=== PATIENT | male | born 1990 | race Caucasian/White ===

== ENCOUNTER 2022-07-07 20:15 | Emergency (ER) | payer SELFPAY ==
[~2022-07-07] VITALS: Ht 175.3 cm; Wt 70.0 kg
[2022-07-07 23:25] LABS: EOSINOPHILS % 3.6 % (0.0-5.0); HEMOGLOBIN. 15.2 g/dL (14.0-18.0); LYMPHOCYTES % 30.6 % (20.0-50.0); MEAN CORPUSCULAR HEMOGLOBIN 32.7 pg (28.0-32.0); MEAN CORPUSCULAR VOLUME 96.7 fL (80.0-94.0); MEAN PLATELET VOLUME 6.9 fl (7.4-10.4); MONOCYTES % 8.4 % (2.0-8.0); NEUTROPHILS % 56.4 % (40.0-76.0); PLATELET 421 x1000/uL (130-400); RED BLOOD CELL COUNT 4.65 mill/uL (4.7-6.1); RED CELL DISTRIBUTION WIDTH 16.9 % (11.6-14.6)
[2022-07-07 23:29] LABS: CHLORIDE 111 mEq/L (98-107)
[2022-07-07 23:52] LABS: ETHANOL BLOOD 496 mg/dL
[2022-07-08] MEDS ORDERED: POTASSIUM CHLORIDE INJ 40 MEQ in DEXT 5% WATER 250 ML IV ONE (01:15)
[2022-07-08] MEDS ORDERED: KCL 20MEQ/100ML X 2 FOR TOTAL KCL 40MEQ/200ML IV SCH (02:00)
[2022-07-08 03:14] VITALS: BP 117/92
[2022-07-08 03:50] LABS: *AMPHETAMINES SCREEN URINE NEGATIVE (NEGATIVE); *BARBITURATES SCREEN URINE NEGATIVE (NEGATIVE); *BENZODIAZEPINES SCREEN URINE NEGATIVE (NEGATIVE); *COCAINE SCREEN URINE PRESUMTIVE POSITIVE (NEGATIVE); CANNABINOID URINE SCREEN NEGATIVE (NEGATIVE); METHADONE URINE SCREEN NEGATIVE (NEGATIVE); OPIATES URINE SCREEN NEGATIVE (NEGATIVE); PHENCYCLIDINE URINE SCREEN NEGATIVE (NEGATIVE)
== END 2022-07-08 05:00 | disposition home or self-care (01) ==
LOC: EDBD 20:15 → ER 20:15
DX: E87.6 Hypokalemia (principal); F10.129 Alcohol abuse with intoxication, unspecified; Y90.8 Blood alcohol level of 240 mg/100 ml or more; F14.10 Cocaine abuse, uncomplicated
CPT/HCPCS: 36415; 70450; 80053; 80305; 80307; 80320; 80329; 85025; 96365; 99291; J3480; J7060; G0480

== ENCOUNTER 2022-12-16 02:02 | Inpatient (IN) | payer MEDICAID ==
[~2022-12-16] VITALS: Ht 167.6 cm; Wt 54.2 kg
[2022-12-16] MEDS ORDERED: ONDANSETRON HCL 4MG/2ML INJ IV STA (02:22)
[2022-12-16] MEDS ORDERED: NALOXONE HCL 0.4 MG/ML 1ML VIAL IV ONE (02:30)
[2022-12-16] MEDS ORDERED: SODIUM CHLORIDE 0.9% 1,000 ML IV ONE ×2 (02:30→07:30)
[2022-12-16 02:56] LABS: BG BASE EXCESS -1.6 mmol/L (-2.0-2.0); BG CARBOXYHEMOGLOBIN 0.3 % (0.5-1.5); BG DEOXYHEMOGLOBIN 0.5 % (0.0-5.0); BG FRACTION INSPIRED OXYGEN 100; BG HCO3 ACT 24.2 mmol/L (22.0-26.0); BG METHEMOGLOBIN 0.5 % (0.0-1.5); BG OXYGEN SATURATION 99.5 % (92.0-98.5); BG OXYHEMOGLOBIN 98.7 % (94.0-97.0); BG PCO2 44.5 mmHg (35.0-45.0); BG PH 7.353 (7.350-7.450); BG PO2 419.7 mmHg (75.0-100.0); BG TOTAL HEMOGLOBIN 16.8 g/dL (12.0-18.0); BG VENT MODE MASK - NRB
[2022-12-16 03:17] LABS: BASOPHILS % 0.7 % (0.0-2.0); EOSINOPHILS % 5.9 % (0.0-5.0); HEMATOCRIT. 46.7 % (42.0-52.0); HEMOGLOBIN. 15.8 g/dL (14.0-18.0); LYMPHOCYTES % 16.9 % (20.0-50.0); MEAN CORPUSCULAR HEMOGLOBIN 33.2 pg (28.0-32.0); MEAN CORPUSCULAR VOLUME 98.2 fL (80.0-94.0); MONOCYTES % 3.3 % (2.0-8.0); NEUTROPHILS % 73.2 % (40.0-76.0); PLATELET 452 x1000/uL (130-400); RED BLOOD CELL COUNT 4.76 mill/uL (4.7-6.1); RED CELL DISTRIBUTION WIDTH 14.3 % (11.6-14.6)
[2022-12-16 03:23] LABS: CLARITY URINE CLEAR (CLEAR); COLOR URINE YELLOW (YELLOW); KETONES URINE NEGATIVE (NEGATIVE); LEUKOCYTE ESTERASE URINE NEGATIVE (NEGATIVE); NITRITE URINE NEGATIVE (NEGATIVE); OCCULT BLOOD URINE NEGATIVE (NEGATIVE); PH URINE 6.5 (4.5-8.0); PROTEIN URINE NEGATIVE (NEGATIVE); SPECIFIC GRAVITY URINE 1.005 (1.005-1.030); UROBILINOGEN URINE 0.2 E.U./dL (0.2-1.0)
[2022-12-16 03:33] LABS: *AMPHETAMINES SCREEN URINE NEGATIVE (NEGATIVE); *BARBITURATES SCREEN URINE NEGATIVE (NEGATIVE); *BENZODIAZEPINES SCREEN URINE NEGATIVE (NEGATIVE); *COCAINE SCREEN URINE NEGATIVE (NEGATIVE); CANNABINOID URINE SCREEN PRESUMTIVE POSITIVE (NEGATIVE); METHADONE URINE SCREEN NEGATIVE (NEGATIVE); OPIATES URINE SCREEN NEGATIVE (NEGATIVE); PHENCYCLIDINE URINE SCREEN NEGATIVE (NEGATIVE)
[2022-12-16 03:44] LABS: CHLORIDE 109 mEq/L (98-107)
[2022-12-16 04:59] LABS: ETHANOL BLOOD 317 mg/dL
[2022-12-16] MEDS ORDERED: LACTULOSE 20G/30ML UDC PO ONE (09:00)
[2022-12-16] MEDS ORDERED: ACETAMINOPHEN 325MG TABLET PO PRN ×2 (09:15)
[2022-12-16] MEDS ORDERED: GUAIFENESIN 200MG/10ML SUGAR FREE UDC PO PRN (09:15)
[2022-12-16] MEDS ORDERED: MAGNESIUM/ALUMINUM HYDROXIDE/SIMETHICONE 30ML UDC PO PRN (09:15)
[2022-12-16] MEDS ORDERED: CLONIDINE 0.1MG TABLET PO PRN (09:15)
[2022-12-16] MEDS ORDERED: IPRATROPIUM/ALBUTEROL 0.5-3(2.5)MG/3ML NEB HHN PRN (09:15)
[2022-12-16] MEDS ORDERED: ONDANSETRON HCL 4MG/2ML INJ IV PRN (09:15)
[2022-12-16] MEDS ORDERED: DOCUSATE SODIUM 100MG CAPSULE PO PRN (09:15)
[2022-12-16] MEDS ORDERED: LACTULOSE 20G/30ML UDC PO SCH (09:30)
[2022-12-16] MEDS ORDERED: SODIUM CHLORIDE 0.9% 1000ML BAG (SEPSIS BOLUS) IV NR (10:00)
[2022-12-16] MEDS: ENOXAPARIN 40MG/0.4ML SYR SUBCUT SCH (10:00)
[2022-12-16] MEDS ORDERED: MVI, ADULT NO.1 10 ML, FOLIC ACID 1 MG, THIAMINE HCL 100 MG in DEXT 5%/0.45% NACL 1000M... IV ONE ×4 (10:00)
[2022-12-16] MEDS: LACTULOSE 20G/30ML UDC PO SCH ×4 (11:56→23:08)
[2022-12-16 17:47] LABS: PROTHROMBIN TIME 10.5 sec (9.6-11.0)
[2022-12-16 17:53] LABS: CREATINE KINASE 277 IU/L (39-308)
[2022-12-16 22:00] VITALS: BP 120/92
[2022-12-16] MEDS: FAMOTIDINE 20MG TABLET PO SCH (22:54)
[2022-12-17] VITALS: BP 143/106
[2022-12-17] MEDS: LACTULOSE 20G/30ML UDC PO SCH ×2 (03:41→08:52)
[2022-12-17 04:00] VITALS: BP 134/100
[2022-12-17 07:00] LABS: CHLORIDE 100 mEq/L (98-107)
[2022-12-17 07:06] LABS: BASOPHILS % 1.1 % (0.0-2.0); EOSINOPHILS % 7.9 % (0.0-5.0); HEMATOCRIT. 37.5 % (42.0-52.0); LYMPHOCYTES % 15.7 % (20.0-50.0); MEAN CORPUSCULAR HEMOGLOBIN 33.2 pg (28.0-32.0); MEAN CORPUSCULAR VOLUME 96.1 fL (80.0-94.0); MEAN PLATELET VOLUME 7.2 fl (7.4-10.4); MONOCYTES % 6.6 % (2.0-8.0); NEUTROPHILS % 68.7 % (40.0-76.0); PLATELET 341 x1000/uL (130-400); RED CELL DISTRIBUTION WIDTH 14.3 % (11.6-14.6)
[2022-12-17 07:13] LABS: HDL CHOLESTEROL 60 mg/dL (40-59); LDL CHOLESTEROL 28 mg/dL (5-100); PHOSPHORUS 2.9 mg/dL (2.5-4.9)
[2022-12-17 08:00] VITALS: BP 138/89
[2022-12-17] MEDS ORDERED: MAGNESIUM OXIDE 400MG TABLET PO NR (08:30)
[2022-12-17] MEDS: FOLIC ACID 1MG TABLET PO SCH (08:53)
[2022-12-17] MEDS: FAMOTIDINE 20MG TABLET PO SCH ×2 (08:53→20:06)
[2022-12-17] MEDS: THIAMINE HCL 100MG TABLET PO SCH (08:56)
[2022-12-17] MEDS: ENOXAPARIN 40MG/0.4ML SYR SUBCUT SCH (09:29)
[2022-12-17 12:00] VITALS: BP 141/93
[2022-12-17 16:00] VITALS: BP 140/99
[2022-12-17] MEDS ORDERED: IPRATROPIUM BROMIDE (0.02%) 0.5MG/2.5ML NEB HHN PRN (16:45)
[2022-12-17] MEDS ORDERED: ALBUTEROL (0.083%) 2.5MG/3ML NEB HHN PRN (16:45)
[2022-12-17 20:00] VITALS: BP 139/100
[2022-12-18] VITALS: BP 142/106
[2022-12-18 03:54] VITALS: BP 148/106
[2022-12-18 05:45] LABS: BASOPHILS % 1.2 % (0.0-2.0); EOSINOPHILS % 8.6 % (0.0-5.0); HEMATOCRIT. 40.6 % (42.0-52.0); HEMOGLOBIN. 14.2 g/dL (14.0-18.0); LYMPHOCYTES % 28.4 % (20.0-50.0); MEAN CORPUSCULAR HEMOGLOBIN 33.5 pg (28.0-32.0); MEAN CORPUSCULAR VOLUME 95.8 fL (80.0-94.0); MEAN PLATELET VOLUME 7.4 fl (7.4-10.4); MONOCYTES % 12.5 % (2.0-8.0); NEUTROPHILS % 49.3 % (40.0-76.0); PLATELET 293 x1000/uL (130-400); RED BLOOD CELL COUNT 4.24 mill/uL (4.7-6.1); RED CELL DISTRIBUTION WIDTH 13.8 % (11.6-14.6)
[2022-12-18 05:48] LABS: CHLORIDE 99 mEq/L (98-107)
[2022-12-18 05:53] LABS: PHOSPHORUS 3.4 mg/dL (2.5-4.9)
[2022-12-18 08:00] VITALS: BP 158/111
[2022-12-18] MEDS: THIAMINE HCL 100MG TABLET PO SCH (08:53)
[2022-12-18] MEDS: FAMOTIDINE 20MG TABLET PO SCH (08:53)
[2022-12-18] MEDS: FOLIC ACID 1MG TABLET PO SCH (08:53)
[2022-12-18] MEDS ORDERED: FOLI-43 PO (09:27)
[2022-12-18] MEDS: ENOXAPARIN 40MG/0.4ML SYR SUBCUT SCH (09:27)
[2022-12-18] MEDS ORDERED: THIA50TA12 MT (09:38)
[2022-12-18 12:03] VITALS: BP 116/89
[2022-12-18 12:21] VITALS: BP 116/89
== END 2022-12-18 14:25 | disposition home or self-care (01) ==
LOC: ER 02:02 → MICUSO 08:57 → 7WST 21:50
PROVIDERS: ADMIT Internal Medicine; ATTEND Internal Medicine
DX: K76.82 Hepatic encephalopathy (principal); G92.8 Other toxic encephalopathy; E87.0 Hyperosmolality and hypernatremia; E87.20 Acidosis, unspecified; G93.89 Other specified disorders of brain; H57.04 Mydriasis; K82.4 Cholesterolosis of gallbladder; G31.9 Degenerative disease of nervous system, unspecified; R74.01 Elevation of levels of liver transaminase levels
CPT/HCPCS: 36415; 36600; 71045; 76700; 80048; 80053; 80061; 80305; 80307; 80320; 80329; 81003; 82140; 82375; 82550; 82805; 83605; 83735; 84100; 84145; 84439; 84443; 85025; 92610; 97162; 97165; 99291; J1650; J2310; J2405; J3411; J3490; J7030; G0480